=== PATIENT | male | born 2000 | race Caucasian/White ===

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

== ENCOUNTER 2022-10-05 00:10 | Emergency (ER) | payer SELFPAY ==
[2022-10-05] MEDS ORDERED: IBUP-1455 PO (16:07)
[2022-10-05] MEDS ORDERED: ACET500T58 PO (16:07)
[2022-10-05] MEDS ORDERED: CEPH-510 PO (16:07)
== END 2022-10-05 01:48 | disposition left against medical advice (07) ==
LOC: ER 00:10
DX: L02.91 Cutaneous abscess, unspecified (principal); Z53.21 Procedure and treatment not carried out due to patient leaving prior to being seen by health care provider

== ENCOUNTER 2022-10-05 10:43 | Emergency (ER) | payer BC, OTHER ==
[~2022-10-05] VITALS: Ht 165.1 cm; Wt 73.0 kg
[2022-10-05] MEDS ORDERED: TETANUS-DIPTH-ACEL PERTUSSIS 0.5ML SYR Tdap IM ONE (14:15)
[2022-10-05] MEDS ORDERED: IBUP-1455 PO (16:07)
[2022-10-05] MEDS ORDERED: ACET500T58 PO (16:07)
[2022-10-05] MEDS ORDERED: CEPH-510 PO (16:07)
[2022-10-05 16:08] VITALS: BP 121/48
== END 2022-10-05 16:23 | disposition home or self-care (01) ==
LOC: ER 10:43
DX: L05.91 Pilonidal cyst without abscess (principal)
CPT/HCPCS: 10080; 90471; 90715